=== PATIENT | female | born 1955 | race Caucasian/White ===

== ENCOUNTER 2021-11-09 05:01 | Observation (INO) | payer MEDICARE, SELFPAY ==
--- NOTE | ~2021-11-09 | CT_ITS ---
EXAMINATION: CT ABDOMEN AND PELVIS WITHOUT CONTRAST CLINICAL INFORMATION: Pancreatitis. COMPARISON: None TECHNIQUE: Multidetector volumetric imaging was performed from the superior aspect of the liver through the pubic symphysis. Sagittal and coronal reformatted images were obtained on the technologist's workstation. This CT examination was performed using dose optimization techniques as appropriate, variously including the following: *Automated exposure control *Adjustment of mA and/or kV according to patient size (this includes techniques or standardized protocols for targeted exams where dose is matched to indication/reason for exam; i.e. extremities or head) *Use of iterative reconstruction technique DLP: 408 mGy-cm FINDINGS: LUNG BASES: The visualized lung bases are unremarkable. LIVER, GALLBLADDER, AND BILIARY TREE: The liver is normal in size, shape, and attenuation. No focal hepatic lesion or biliary ductal dilatation is present. The gallbladder has been surgically removed. PANCREAS: The pancreas is normal size and homogeneous in density. There is a punctate calcification in the body of pancreas. No focal lesion or mass effect seen. The peripancreatic fat borders are preserved normal. SPLEEN: Unremarkable. ADRENAL GLANDS: The left adrenal gland has been surgically removed. The right adrenal gland is mildly hypertrophied but otherwise unremarkable. KIDNEYS AND URETERS: The kidneys are normal in size, shape, and attenuation. No hydronephrosis, hydroureter, or calculi seen. No perinephric stranding. There is 9 mm hypoattenuating exophytic lesion of upper pole left kidney measuring 13 Hounsfield units suggestive of a cyst. BLADDER: Unremarkable. GASTROINTESTINAL TRACT: There is scattered stool and gas seen throughout the colon without significant distention. Few scattered diverticuli seen in the colon. There is no evidence of diverticulitis. The small bowel loops are normal caliber. Appendix is normal caliber. ABDOMINAL WALL: No significant hernia is appreciated. LYMPH NODES: Normal. VASCULAR: Significant arthroscopic calcification of abdominal aorta with chronic atherosclerotic dissection of distal and posterior abdominal aorta is noted. PELVIC VISCERA: There is a vaginal pessary. The uterus is anteverted. There is no free fluid. No abnormal pelvic or inguinal lymph nodes seen. OSSEOUS STRUCTURES: No lytic or sclerotic process seen. CT/CT abdomen pelvis wo con IMPRESSION: Unremarkable pancreas. No acute process seen in the abdomen. There is a vaginal pessary in the pelvis. Chronic posterior descending abdominal aortic dissection. No aneurysmal dilatation. Fleischner guidelines were followed.
[2021-11-09 05:22] VITALS: BP 141/64; PULSE 62; RESP 16; TEMP 36.6; O2SAT 99; BMI 21.9
[2021-11-09 05:31] LABS: COVID-19 Test Negative (Negative); IDNOW Serial# 9DD0AD1C
[2021-11-09 06:21] LABS: MANUAL DIFF FLAG NO
[2021-11-09 06:38] LABS: Alanine Aminotransferase 17 U/L (0-31); Albumin Level 4.2 g/dL (3.5-5.0); Alkaline Phosphatase 43 U/L (39-117); Anion Gap 12 (12-20); Aspartate Amino Transferase 17 U/L (5-31); Bilirubin Total 0.3 mg/dL (0.0-1.0); Blood Urea Nitrogen 49 mg/dL (9-16); Calcium 9.8 mg/dL (8.4-10.2); Carbon Dioxide 21 mmol/L (22-29); Chloride 114 mmol/L (96-108); Estimated Glomerular Filt Rate 21; Glucose Random 115 mg/dL (60-115); Lipase 118 U/L (8-78); Potassium 5.1 mmol/L (3.3-5.1); Sodium 142 mmol/L (135-145); Total Protein 6.7 g/dL (6.5-8.0)
[2021-11-09 06:41] LABS: Basophils Absolute Auto 0.1 X10*3/uL (0.0-0.2); Basophils Percent Auto 0.8 % (0-2); Eosinophils Absolute Auto 0.3 X10*3/uL (0.0-0.4); Eosinophils Percent Auto 3.3 % (0-4); Hematocrit 38.8 % (37.0-47.0); Hemoglobin 12.4 g/dl (12.0-16.0); Imm Gran Abs Auto 0.05 X10*3/uL (0.00-0.03); Imm Gran Pct Auto 0.5 % (0.0-0.4); Lymphocytes Absolute Auto 2.6 X10*3/uL (1.2-4.9); Lymphocytes Percent Auto 27.4 % (20-40); Mean Corpuscular Hemoglobin 29.2 pg (27.0-33.0); Mean Corpuscular Volume 91.3 fL (80.0-98.0); Mean Platelet Volume 11.1 fL (9.4-12.3); Monocytes Absolute Auto 0.8 X10*3/uL (0.1-1.2); Monocytes Percent Auto 8.6 % (2-11); Neutrophils Absolute Auto 5.5 x10*3/uL (2.0-8.3); Neutrophils Percent Auto 59.4 % (45-73); Platelet Count 293 X10*3/uL (160-400); Red Blood Count 4.25 X10*6/uL (4.20-5.50); Red Cell Distribution Width 13.4 % (11.0-16.0); White Blood Count 9.3 X10*3/uL (4.8-10.8)
[2021-11-09] MEDS: 0.9 % Sodium Chloride 500 ML 999 ML IV ×3 (07:48→11:33)
[2021-11-09] MEDS: Morphine Sulfate 4 MG/ML CARTRIDGE IVPUSH (07:48)
--- NOTE | 2021-11-09 07:50 | ED_ITS ---
HPI - General Adult General Chief complaint: General Medical Stated complaint: abd pain, chills Time Seen by Provider: 11/09/21 07:37 Source: patient Mode of arrival: ambulatory Limitations: no limitations History of Present Illness HPI narrative: 58-year-old female presents to emergency room complaining of upper abdominal pain for past week has been dull and in the right upper quadrant as well. She states she does not have a gallbladder anymore. She denies any falls or injuries she denies any associated with foods. States she does not drink alcohol and she denies having pancreatitis in the past. Patient is vaccinated for COVID with the [employer] vaccine she has not received a booster shot. Related Data Home Medications Medication Instructions Recorded Confirmed albuterol sulfate 90 mcg/actuation 2 puff INHALATION Q4H PRN 11/09/21 11/09/21 aerosol inhaler aspirin 81 mg chewable tablet 81 mg PO DAILY 11/09/21 11/09/21 carvedilol 25 mg tablet 1 tab PO BID 11/09/21 11/09/21 cetirizine 10 mg tablet 10 mg PO DAILY PRN 11/09/21 11/09/21 cholecalciferol (vitamin D3) 50 1 tab PO DAILY 11/09/21 11/09/21 mcg (2,000 unit) tablet clopidogrel 75 mg tablet 1 tab PO DAILY 11/09/21 11/09/21 cyanocobalamin (vitamin B-12) 1,000 mcg PO DAILY 11/09/21 11/09/21 1,000 mcg tablet ezetimibe 10 mg tablet 1 tab PO DAILY 11/09/21 11/09/21 fenofibrate nanocrystallized 145 1 tab PO DAILY 11/09/21 11/09/21 mg tablet hydrochlorothiazide 12.5 mg capsule 1 cap PO DAILY 11/09/21 11/09/21 levothyroxine 125 mcg tablet 125 mcg PO DAILY@0600 11/09/21 11/09/21 lisinopril 40 mg tablet 1 tab PO BID 11/09/21 11/09/21 nateglinide 60 mg tablet 60 mg PO BIDAC 11/09/21 11/09/21 nifedipine 60 mg tablet,extended 1 tab PO BID 11/09/21 11/09/21 release 24 hr rosuvastatin 40 mg tablet 1 tab PO DAILY 11/09/21 11/09/21 Allergies Allergy/AdvReac Type Severity Reaction Status Date / Time No Known Allergies Allergy Verified 11/09/21 07:37 Review of Systems Review of Systems: Review of systems: General: Patient denies any fever chills recent illness or falls Musculoskeletal: Denies back pain or body aches or other injuries HEENT: denies headache, runny nose, ear pain Respiratory: denies shortness of breath, cough Cardiovascular: no chest pain or palpitations : denies dysuria, frequency Abdomen: no nausea vomiting she does have dull epigastric abdominal pain Extremities: no swelling, no pain Skin: no diaphoresis Yes all other systems are reviewed and are negative PMFSH Social History Social History Advance Directives: No Advance Directives Information Provided: No Physical Exam Vital Signs: Vital Signs: Last Vital Signs Temp 97.4 F 11/09/21 11:37 Pulse 56 11/09/21 11:37 Resp 16 11/09/21 11:37 BP 135/62 11/09/21 11:37 Pulse Ox 97 11/09/21 11:37 BMI result Body Mass Index 21.9 General: Well-appearing well-nourished in no signs of distress HEENT: Normocephalic atraumatic Neck: No signs of JVD, no masses no tenderness or lymphadenopathy Cardiovascular: Regular rate and rhythm Respiratory: Clear to auscultation bilaterally Abdomen: Soft nontender no masses Extremities: Normal pedal pulses no signs of edema Skin: Dry warm no rashes Back: No tenderness full ROM Medical Decision Making MDM Narrative Medical decision making narrative: Concern for pancreatitis patient does not have gallbladder the patient for CT scan I will check labs including CBC BMP LFTs and lipase. Lipase is minimally elevated the patient for CT scan pain is controlled with morphine patient to get L fluid however for 2 L patient does have acute kidney injury with an elevated BUN creatinine 2.3. Patient states she chronic kidney disease but I do not have previous creatinine on the patient. Umfortunately CT would have to be done without contrast. [id number] I explained the need for admission to patient I paged the hospitalist about admission. 1200 Patient accepted to the hospitalist unit I will put Lab Data Result diagrams: 11/09/21 06:14 11/09/21 06:14 Labs: Lab Results 11/09/21 11/09/21 11/09/21 Range/Units 05:10 06:14 06:14 WBC 9.3 (4.8-10.8) X10*3/uL RBC 4.25 (4.20-5.50) X10*6/uL Hgb 12.4 (12.0-16.0) g/dl Hct 38.8 (37.0-47.0) % MCV 91.3 (80.0-98.0) fL MCH 29.2 (27.0-33.0) pg MCHC 32.0 (31.0-35.0) g/dl RDW 13.4 (11.0-16.0) % Plt Count 293 (160-400) X10*3/uL MPV 11.1 (9.4-12.3) fL Immature Gran % (Auto) 0.5 H (0.0-0.4) % Neut % (Auto) 59.4 (45-73) % Lymph % (Auto) 27.4 (20-40) % [place] % (Auto) 8.6 (2-11) % Eos % (Auto) 3.3 (0-4) % Baso % (Auto) 0.8 (0-2) % Lymph # (Auto) 2.6 (1.2-4.9) X10*3/uL [place] # (Auto) 0.8 (0.1-1.2) X10*3/uL Eos # (Auto) 0.3 (0.0-0.4) X10*3/uL Baso # (Auto) 0.1 (0.0-0.2) X10*3/uL Abs Immat Gran (auto) 0.05 H (0.00-0.03) X10*3/uL Absolute Neuts (auto) 5.5 (2.0-8.3) x10*3/uL Absolute Nucleated RBC 0.000 (0.0-0.012) X10*3/uL Nucleated RBC % (auto) 0.0 (0.0-0.2) /100WBC Sodium 142 (135-145) mmol/L Potassium 5.1 (3.3-5.1) mmol/L Chloride 114 H (96-108) mmol/L Carbon Dioxide 21 L (22-29) mmol/L Anion Gap 12 (12-20) BUN 49 H (9-16) mg/dL Creatinine 2.32 H (0.5-1.4) mg/dL Estim Creat Clear Calc 20.0 Estimated GFR 21 Random Glucose 115 (60-115) mg/dL Calcium 9.8 (8.4-10.2) mg/dL Total Bilirubin 0.3 (0.0-1.0) mg/dL AST 17 (5-31) U/L ALT 17 (0-31) U/L Alkaline Phosphatase 43 (39-117) U/L Total Protein 6.7 (6.5-8.0) g/dL Albumin 4.2 (3.5-5.0) g/dL Triglycerides 205 mg/dL Cholesterol 135 mg/dL LDL Cholesterol, Calc 60 mg/dl HDL Cholesterol 34 mg/dL Lipase 118 H (8-78) U/L Urine Color Urine Appearance Urine pH (5.0-8.0) Ur Specific [place] (1.005-1.025) Urine Protein (NEG-TRACE) MG/DL Urine Glucose (UA) (NEG) MG/DL Urine Ketones (NEG) MG/DL Urine Blood (NEG) Urine Nitrite (NEG) Ur Leukocyte Esterase (NEG) Urine RBC (0) /HPF Urine WBC (0-4) /HPF Ur Squamous Epith Cells /LPF Urine Bacteria /LPF Granular Casts /LPF Ethyl Alcohol mg/dL COVID-19 ([facility]ASKAR) Negative (Negative) COVID-19 Clin Com See Note 11/09/21 11/09/21 11/09/21 Range/Units 08:44 08:54 08:54 WBC (4.8-10.8) X10*3/uL RBC (4.20-5.50) X10*6/uL Hgb (12.0-16.0) g/dl Hct (37.0-47.0) % MCV (80.0-98.0) fL MCH (27.0-33.0) pg MCHC (31.0-35.0) g/dl RDW (11.0-16.0) % Plt Count (160-400) X10*3/uL MPV (9.4-12.3) fL Immature Gran % (Auto) (0.0-0.4) % Neut % (Auto) (45-73) % Lymph % (Auto) (20-40) % [place] % (Auto) (2-11) % Eos % (Auto) (0-4) % Baso % (Auto) (0-2) % Lymph # (Auto) (1.2-4.9) X10*3/uL [place] # (Auto) (0.1-1.2) X10*3/uL Eos # (Auto) (0.0-0.4) X10*3/uL Baso # (Auto) (0.0-0.2) X10*3/uL Abs Immat Gran (auto) (0.00-0.03) X10*3/uL Absolute Neuts (auto) (2.0-8.3) x10*3/uL Absolute Nucleated RBC (0.0-0.012) X10*3/uL Nucleated RBC % (auto) (0.0-0.2) /100WBC Sodium (135-145) mmol/L Potassium (3.3-5.1) mmol/L Chloride (96-108) mmol/L Carbon Dioxide (22-29) mmol/L Anion Gap (12-20) BUN (9-16) mg/dL Creatinine (0.5-1.4) mg/dL Estim Creat Clear Calc Estimated GFR Random Glucose (60-115) mg/dL Calcium (8.4-10.2) mg/dL Total Bilirubin (0.0-1.0) mg/dL AST (5-31) U/L ALT (0-31) U/L Alkaline Phosphatase (39-117) U/L Total Protein (6.5-8.0) g/dL Albumin (3.5-5.0) g/dL Triglycerides 201 mg/dL Cholesterol 126 mg/dL LDL Cholesterol, Calc 55 mg/dl HDL Cholesterol 31 mg/dL Lipase (8-78) U/L Urine Color YELLOW Urine Appearance CLEAR Urine pH 5.5 (5.0-8.0) Ur Specific [place] >= 1.030 H (1.005-1.025) Urine Protein 2+ H (NEG-TRACE) MG/DL Urine Glucose (UA) NEG (NEG) MG/DL Urine Ketones NEG (NEG) MG/DL Urine Blood NEG (NEG) Urine Nitrite NEG (NEG) Ur Leukocyte Esterase NEG (NEG) Urine RBC 0 (0) /HPF Urine WBC 0-2 (0-4) /HPF Ur Squamous Epith Cells 1+ /LPF Urine Bacteria NONE /LPF Granular Casts 0-2 /LPF Ethyl Alcohol < 10 mg/dL COVID-19 ([facility]AR) (Negative) COVID-19 Clin Com Discharge Plan Discharge Clinical Impression: Elevated lipase, Abdominal pain, LEIGH (acute kidney injury) Patient Disposition: Admitted As Inpatient Prescriptions: No Action carvedilol 25 mg tablet 1 tab PO BID RF: 0 clopidogrel 75 mg tablet 1 tab PO DAILY RF: 0 nateglinide 60 mg tablet 60 mg PO BIDAC RF: 0 nifedipine 60 mg tablet extended release 24hr 1 tab PO BID RF: 0 levothyroxine 125 mcg tablet 125 mcg PO DAILY@0600 RF: 0 hydrochlorothiazide 12.5 mg capsule 1 cap PO DAILY RF: 0 albuterol sulfate 90 mcg/actuation HFA aerosol inhaler 2 puff inhalation Q4H PRN (Reason: Wheezing) RF: 0 lisinopril 40 mg tablet 1 tab PO BID RF: 0 ezetimibe 10 mg tablet 1 tab PO DAILY RF: 0 rosuvastatin 40 mg tablet 1 tab PO DAILY RF: 0 fenofibrate nanocrystallized 145 mg tablet 1 tab PO DAILY RF: 0 cholecalciferol (vitamin D3) 50 mcg (2,000 unit) tablet 1 tab PO DAILY RF: 0 cetirizine 10 mg Tablet 10 mg PO DAILY PRN (Reason: Allergy Symptoms) RF: 0 cyanocobalamin (vitamin B-12) 1,000 mcg Tablet 1,000 mcg PO DAILY RF: 0 aspirin 81 mg Tablet,Chewable 81 mg PO DAILY RF: 0
[2021-11-09 08:13] VITALS: BP 133/58; PULSE 57; RESP 14; TEMP 36.2; O2SAT 97
[2021-11-09 08:31] LABS: Cholesterol 135 mg/dL; HDL Cholesterol 34 mg/dL; LDL Cholesterol Calculated 60 mg/dl; Triglycerides 205 mg/dL
[2021-11-09 09:00] LABS: Appearance Urine CLEAR; Color Urine YELLOW; Glucose Urine UA NEG (NEG); Leukocyte Esterase Urine NEG (NEG); Nitrite Urine NEG (NEG); PH 5.5 (5.0-8.0); Specific Gravity - Urine >= 1.030 (1.005-1.025); UACC Culture Trigger NO; Urine Blood NEG (NEG); Urine Ketones NEG (NEG); Urine Protein 2+ MG/DL (NEG-TRACE)
[2021-11-09 09:09] LABS: Granular Casts Urine 0-2 /LPF; RBC Urine 0 /HPF (0); Squamous Epithelial Cell Urine 1+ /LPF; WBC Urine 0-2 /HPF (0-4)
[2021-11-09 09:13] LABS: Ethanol < 10 mg/dL
[2021-11-09 09:19] LABS: Cholesterol 126 mg/dL; HDL Cholesterol 31 mg/dL; LDL Cholesterol Calculated 55 mg/dl; Triglycerides 201 mg/dL
[2021-11-09 09:34] LABS: Reflex LDLD? No
[2021-11-09 11:37] VITALS: BP 135/62; PULSE 56; RESP 16; TEMP 36.3; O2SAT 97
--- NOTE | 2021-11-09 11:41 | PHA.MEDREC ---
Pharmacy Consult ? Medication Reconciliation Pharmacy has completed the medication reconciliation. Patient reports she is on Tradjenta 5 mg QHS and Lovaza 2 tablet daily, however I cannot confirm with pharmacy. There is no fill history and I was left on hold with [facility] for 15 minutes. Quiana sumner are on formulary. Radha Mary, ShunD
--- NOTE | 2021-11-09 12:09 | ED.GENADULT ---
HPI - General Adult General Chief complaint: General Medical Stated complaint: abd pain, chills Time Seen by Provider: 11/09/21 07:37 Source: patient Mode of arrival: ambulatory Limitations: no limitations Related Data Home Medications Medication Instructions Recorded Confirmed albuterol sulfate 90 mcg/actuation 2 puff INHALATION Q4H PRN 11/09/21 11/09/21 aerosol inhaler aspirin 81 mg chewable tablet 81 mg PO DAILY 11/09/21 11/09/21 carvedilol 25 mg tablet 1 tab PO BID 11/09/21 11/09/21 cetirizine 10 mg tablet 10 mg PO DAILY PRN 11/09/21 11/09/21 cholecalciferol (vitamin D3) 50 1 tab PO DAILY 11/09/21 11/09/21 mcg (2,000 unit) tablet clopidogrel 75 mg tablet 1 tab PO DAILY 11/09/21 11/09/21 cyanocobalamin (vitamin B-12) 1,000 mcg PO DAILY 11/09/21 11/09/21 1,000 mcg tablet ezetimibe 10 mg tablet 1 tab PO DAILY 11/09/21 11/09/21 fenofibrate nanocrystallized 145 1 tab PO DAILY 11/09/21 11/09/21 mg tablet hydrochlorothiazide 12.5 mg capsule 1 cap PO DAILY 11/09/21 11/09/21 levothyroxine 125 mcg tablet 125 mcg PO DAILY@0600 11/09/21 11/09/21 lisinopril 40 mg tablet 1 tab PO BID 11/09/21 11/09/21 nateglinide 60 mg tablet 60 mg PO BIDAC 11/09/21 11/09/21 nifedipine 60 mg tablet,extended 1 tab PO BID 11/09/21 11/09/21 release 24 hr rosuvastatin 40 mg tablet 1 tab PO DAILY 11/09/21 11/09/21 Allergies Allergy/AdvReac Type Severity Reaction Status Date / Time No Known Allergies Allergy Verified 11/09/21 07:37 [facility] Social History Social History Advance Directives: No Advance Directives Information Provided: No Physical Exam Vital Signs: Vital Signs: Last Vital Signs Temp 97.4 F 11/09/21 11:37 Pulse 56 11/09/21 11:37 Resp 16 11/09/21 11:37 BP 135/62 01/06/22 11:37 Pulse Ox 97 11/09/21 11:37 BMI result Body Mass Index 21.9 Medical Decision Making Lab Data Result diagrams: 11/09/21 06:14 11/09/21 06:14 Labs: Lab Results 11/09/21 11/09/21 11/09/21 Range/Units 05:10 06:14 06:14 WBC 9.3 (4.8-10.8) X10*3/uL RBC 4.25 (4.20-5.50) X10*6/uL Hgb 12.4 (12.0-16.0) g/dl Hct 38.8 (37.0-47.0) % MCV 91.3 (80.0-98.0) fL MCH 29.2 (27.0-33.0) pg MCHC 32.0 (31.0-35.0) g/dl RDW 13.4 (11.0-16.0) % Plt Count 293 (160-400) X10*3/uL MPV 11.1 (9.4-12.3) fL Immature Gran % (Auto) 0.5 H (0.0-0.4) % Neut % (Auto) 59.4 (45-73) % Lymph % (Auto) 27.4 (20-40) % [place] % (Auto) 8.6 (2-11) % Eos % (Auto) 3.3 (0-4) % Baso % (Auto) 0.8 (0-2) % Lymph # (Auto) 2.6 (1.2-4.9) X10*3/uL [place] # (Auto) 0.8 (0.1-1.2) X10*3/uL Eos # (Auto) 0.3 (0.0-0.4) X10*3/uL Baso # (Auto) 0.1 (0.0-0.2) X10*3/uL Abs Immat Gran (auto) 0.05 H (0.00-0.03) X10*3/uL Absolute Neuts (auto) 5.5 (2.0-8.3) x10*3/uL Absolute Nucleated RBC 0.000 (0.0-0.012) X10*3/uL Nucleated RBC % (auto) 0.0 (0.0-0.2) /100WBC Sodium 142 (135-145) mmol/L Potassium 5.1 (3.3-5.1) mmol/L Chloride 114 H (96-108) mmol/L Carbon Dioxide 21 L (22-29) mmol/L Anion Gap 12 (12-20) BUN 49 H (9-16) mg/dL Creatinine 2.32 H (0.5-1.4) mg/dL Estim Creat Clear Calc 20.0 Estimated GFR 21 Random Glucose 115 (60-115) mg/dL Calcium 9.8 (8.4-10.2) mg/dL Total Bilirubin 0.3 (0.0-1.0) mg/dL AST 17 (5-31) U/L ALT 17 (0-31) U/L Alkaline Phosphatase 43 (39-117) U/L Total Protein 6.7 (6.5-8.0) g/dL Albumin 4.2 (3.5-5.0) g/dL Triglycerides 205 mg/dL Cholesterol 135 mg/dL LDL Cholesterol, Calc 60 mg/dl HDL Cholesterol 34 mg/dL Lipase 118 H (8-78) U/L Urine Color Urine Appearance Urine pH (5.0-8.0) Ur Specific [place] (1.005-1.025) Urine Protein (NEG-TRACE) MG/DL Urine Glucose (UA) (NEG) MG/DL Urine Ketones (NEG) MG/DL Urine Blood (NEG) Urine Nitrite (NEG) Ur Leukocyte Esterase (NEG) Urine RBC (0) /HPF Urine WBC (0-4) /HPF Ur Squamous Epith Cells /LPF Urine Bacteria /LPF Granular Casts /LPF Ethyl Alcohol mg/dL COVID-19 ([facility]ASKAR) Negative (Negative) COVID-19 Clin Com See Note 11/09/21 11/09/21 11/09/21 Range/Units 08:44 08:54 08:54 WBC (4.8-10.8) X10*3/uL RBC (4.20-5.50) X10*6/uL Hgb (12.0-16.0) g/dl Hct (37.0-47.0) % MCV (80.0-98.0) fL MCH (27.0-33.0) pg MCHC (31.0-35.0) g/dl RDW (11.0-16.0) % Plt Count (160-400) X10*3/uL MPV (9.4-12.3) fL Immature Gran % (Auto) (0.0-0.4) % Neut % (Auto) (45-73) % Lymph % (Auto) (20-40) % [place] % (Auto) (2-11) % Eos % (Auto) (0-4) % Baso % (Auto) (0-2) % Lymph # (Auto) (1.2-4.9) X10*3/uL [place] # (Auto) (0.1-1.2) X10*3/uL Eos # (Auto) (0.0-0.4) X10*3/uL Baso # (Auto) (0.0-0.2) X10*3/uL Abs Immat Gran (auto) (0.00-0.03) X10*3/uL Absolute Neuts (auto) (2.0-8.3) x10*3/uL Absolute Nucleated RBC (0.0-0.012) X10*3/uL Nucleated RBC % (auto) (0.0-0.2) /100WBC Sodium (135-145) mmol/L Potassium (3.3-5.1) mmol/L Chloride (96-108) mmol/L Carbon Dioxide (22-29) mmol/L Anion Gap (12-20) BUN (9-16) mg/dL Creatinine (0.5-1.4) mg/dL Estim Creat Clear Calc Estimated GFR Random Glucose (60-115) mg/dL Calcium (8.4-10.2) mg/dL Total Bilirubin (0.0-1.0) mg/dL AST (5-31) U/L ALT (0-31) U/L Alkaline Phosphatase (39-117) U/L Total Protein (6.5-8.0) g/dL Albumin (3.5-5.0) g/dL Triglycerides 201 mg/dL Cholesterol 126 mg/dL LDL Cholesterol, Calc 55 mg/dl HDL Cholesterol 31 mg/dL Lipase (8-78) U/L Urine Color YELLOW Urine Appearance CLEAR Urine pH 5.5 (5.0-8.0) Ur Specific [place] >= 1.030 H (1.005-1.025) Urine Protein 2+ H (NEG-TRACE) MG/DL Urine Glucose (UA) NEG (NEG) MG/DL Urine Ketones NEG (NEG) MG/DL Urine Blood NEG (NEG) Urine Nitrite NEG (NEG) Ur Leukocyte Esterase NEG (NEG) Urine RBC 0 (0) /HPF Urine WBC 0-2 (0-4) /HPF Ur Squamous Epith Cells 1+ /LPF Urine Bacteria NONE /LPF Granular Casts 0-2 /LPF Ethyl Alcohol < 10 mg/dL COVID-19 ([facility]ASKAR) (Negative) COVID-19 Clin Com Discharge Plan Discharge Clinical Impression: Elevated lipase, Abdominal pain, LEIGH (acute kidney injury) Patient Disposition: Admitted As Inpatient
[2021-11-09 13:38] LABS: Anion Gap 10 (12-20); Blood Urea Nitrogen 44 mg/dL (9-16); Calcium 9.1 mg/dL (8.4-10.2); Carbon Dioxide 22 mmol/L (22-29); Chloride 117 mmol/L (96-108); Creatinine Clr Calc Pharmacy 24.1; Estimated Glomerular Filt Rate 26; Glucose Random 80 mg/dL (60-115); Potassium 5.1 mmol/L (3.3-5.1); Sodium 144 mmol/L (135-145)
--- NOTE | 2021-11-09 13:48 | P.HPHOSP_ITS ---
History of Present Illness Date of Service: 11/09/21 Attending physician on admission: Mackenzie Terrazas Chief Complaint: Abdominal pain 66-year-old female patient with past medical history significant for hypertension hyperlipidemia hypothyroidism, status post cholecystectomy presented to [facility] with complaint epigastric abdominal pain that started 2-3 weeks ago and gradually became more diffuse without associated nausea vomiting, no diarrhea, but noted to have chills mostly in the afternoon she denied any worsening factors, pain not related to food, denies pain at night, since pain was not improving she came to the emergency room and was noted to have an elevated lipase of 118, and creatinine of 2.32 patient does have history of chronic kidney disease, no labs available for comparison, her triglyceride is 201 with a total cholesterol of 126, CT abdomen without contrast showed no evidence of pancreatitis, no liver abnormality, no biliary ductal dilatation, gallbladder is surgically removed, she denies any sick contacts she denies any abdominal trauma she denied heart burn acidity, denies new medications. Review of Systems Review of Systems: General no headache no dizziness no fever chills. CVS no chest pain, no palpitation. Respiratory no cough , no sob. Gastrointestinal no nausea no vomiting, no diarrhea no urinary urgency no frequency Musculoskeletal no pain Skin no rash Yes all other systems are reviewed and are negative PMFSH Pertinent family history: Mother due to complications of bypass had history of coronary artery disease at old age Father of lung cancer at age 71 Sister has hypertension, hyperlipidemia Social History (Updated 11/09/21 @ 13:56 by Mackenzie Terrazas MD) Alcohol intake: never Advance Directives: No Advance Directives Information Provided: No Meds Allergies Allergy/AdvReac Type Severity Reaction Status Date / Time No Known Allergies Allergy Verified 11/09/21 07:37 Active Medications: Current Medications Acetaminophen (Acetaminophen 325 Mg Tablet) 650 mg PO Q6H PRN PRN Reason: Pain, Mild (Pain Scale 1-3) Albuterol Sulfate (Albuterol Sulfate 90 Mcg 8 Gm Inhaler) 2 puff INHALE Q4H PRN PRN Reason: Wheezing Aspirin (Aspirin 81 Mg Tab.Chew) 81 mg PO DAILY REPLACED BY [facility] Carvedilol (Carvedilol 25 Mg Tablet) 25 mg PO BID REPLACED BY [facility]; Protocol Clopidogrel Bisulfate (Clopidogrel Bisulfate 75 Mg Tablet) 75 mg PO DAILY REPLACED BY [facility] Cyanocobalamin (Cyanocobalamin (Vitamin B-12) 1,000 Mcg Tablet) 1,000 mcg PO DAILY REPLACED BY [facility] Ezetimibe (Ezetimibe 10 Mg Tablet) 10 mg PO DAILY REPLACED BY [facility] Heparin Sodium (Porcine) (Heparin Sodium,Porcine 5,000 Unit/Ml Vial) 5,000 unit SUBCUT Q12H REPLACED BY [facility] Lactated Ringer's (Lr) 1,000 mls @ 80 mls/hr IVCONT .[id number] REPLACED BY [facility] Levothyroxine Sodium (Levothyroxine Sodium 125 Mcg Tablet) 125 mcg PO DAILY@0600 REPLACED BY [facility] Morphine Sulfate (Morphine Sulfate 4 Mg/Ml Cartridge) 3 mg IVPUSH Q4H PRN; Protocol PRN Reason: Pain, Severe (Pain Scale 7-10) Nifedipine (Nifedipine Er 60 Mg Tab.Er.24) 60 mg PO BID TATYANA; Protocol Non-Formulary Medication (Fenofibrate Nanocrystallized) 1 tab PO DAILY REPLACED BY [facility] Non-Formulary Medication (Nateglinide) 60 mg PO BIDAC REPLACED BY [facility] Non-Formulary Medication (Rosuvastatin) 1 tab PO DAILY REPLACED BY [facility] Ondansetron HCl (Ondansetron Hcl 4 Mg/2 Ml Vial) 4 mg IVPUSH Q8H PRN PRN Reason: Nausea and Vomiting Oxycodone HCl (Oxycodone Hcl Immed Release 5 Mg Tablet) 5 mg PO Q6H PRN PRN Reason: Pain, Severe (Pain Scale 7-10) Pharmacy Consult (Consult Rx Perform Med Rec) 1 each MISCELLANE ONCE PRN PRN Reason: Consult order Sodium Chloride (0.9 % Sodium Chloride Flush 3 Ml Syringe) 3 ml IVFLUSH QSHIFT REPLACED BY [facility] Home Medications Medication Instructions Recorded Confirmed Last Taken Type albuterol sulfate 90 mcg/actuation 2 puff INHALATION Q4H PRN 11/09/21 11/09/21 Unknown History aerosol inhaler aspirin 81 mg chewable tablet 81 mg PO DAILY 11/09/21 11/09/21 Unknown History carvedilol 25 mg tablet 1 tab PO BID 11/09/21 11/09/21 Unknown History cetirizine 10 mg tablet 10 mg PO DAILY PRN 11/09/21 11/09/21 Unknown History cholecalciferol (vitamin D3) 50 1 tab PO DAILY 11/09/21 11/09/21 Unknown History mcg (2,000 unit) tablet clopidogrel 75 mg tablet 1 tab PO DAILY 11/09/21 11/09/21 Unknown History cyanocobalamin (vitamin B-12) 1,000 mcg PO DAILY 11/09/21 11/09/21 Unknown History 1,000 mcg tablet ezetimibe 10 mg tablet 1 tab PO DAILY 11/09/21 11/09/21 Unknown History fenofibrate nanocrystallized 145 1 tab PO DAILY 11/09/21 11/09/21 Unknown History mg tablet hydrochlorothiazide 12.5 mg capsule 1 cap PO DAILY 11/09/21 11/09/21 Unknown History levothyroxine 125 mcg tablet 125 mcg PO DAILY@0600 11/09/21 11/09/21 Unknown History lisinopril 40 mg tablet 1 tab PO BID 11/09/21 11/09/21 Unknown History nateglinide 60 mg tablet 60 mg PO BIDAC 11/09/21 11/09/21 Unknown History nifedipine 60 mg tablet,extended 1 tab PO BID 11/09/21 11/09/21 Unknown History release 24 hr rosuvastatin 40 mg tablet 1 tab PO DAILY 11/09/21 11/09/21 Unknown History Physical Exam Vital Signs and Narrative: Vital Signs: Last Vital Signs Temp 97.4 F 11/09/21 11:37 Pulse 56 11/09/21 11:37 Resp 16 11/09/21 11:37 BP 135/62 11/09/21 11:37 Pulse Ox 97 11/09/21 11:37 BMI result Body Mass Index 21.9 General resting comfortably in no acute distress. HEENT pupils equal round reactive to light and accommodation extraocular muscles intact Neck supple no JVD. CVS regular rate rhythm, Respiratory lungs clear to auscultation, no respiratory distress, no wheeze, no rhonchi. Gastrointestinal abdomen soft, nontender, bowel sounds audible, no guarding , no rigidity. Extremities no edema. Neuro nonfocal Skin no rash Psych appropriate affect Results Labs CBC and Chem 7: 11/09/21 06:14 11/09/21 13:07 Labs: Laboratory Results - last 24 hr 11/09/21 11/09/21 11/09/21 05:10 06:14 06:14 MCV 91.3 MCH 29.2 MCHC 32.0 RDW 13.4 Plt Count 293 MPV 11.1 Immature Gran % (Auto) 0.5 H Neut % (Auto) 59.4 Lymph % (Auto) 27.4 [place] % (Auto) 8.6 Eos % (Auto) 3.3 Baso % (Auto) 0.8 Lymph # (Auto) 2.6 [place] # (Auto) 0.8 Eos # (Auto) 0.3 Baso # (Auto) 0.1 Abs Immat Gran (auto) 0.05 H Absolute Neuts (auto) 5.5 Absolute Nucleated RBC 0.000 Nucleated RBC % (auto) 0.0 Anion Gap 12 Estim Creat Clear Calc 20.0 Estimated GFR 21 Random Glucose 115 Calcium 9.8 Total Bilirubin 0.3 AST 17 ALT 17 Alkaline Phosphatase 43 Total Protein 6.7 Albumin 4.2 Triglycerides 205 Cholesterol 135 LDL Cholesterol, Calc 60 HDL Cholesterol 34 Lipase 118 H Urine Color Urine Appearance Urine pH Ur Specific [place] Urine Protein Urine Glucose (UA) Urine Ketones Urine Blood Urine Nitrite Ur Leukocyte Esterase Urine RBC Urine WBC Ur Squamous Epith Cells Urine Bacteria Granular Casts Ethyl Alcohol COVID-19 (BHASKAR) Negative COVID-19 Clin Com See Note 11/09/21 11/09/21 11/09/21 08:44 08:54 08:54 MCV MCH MCHC RDW Plt Count MPV Immature Gran % (Auto) Neut % (Auto) Lymph % (Auto) [place] % (Auto) Eos % (Auto) Baso % (Auto) Lymph # (Auto) [place] # (Auto) Eos # (Auto) Baso # (Auto) Abs Immat Gran (auto) Absolute Neuts (auto) Absolute Nucleated RBC Nucleated RBC % (auto) Anion Gap Estim Creat Clear Calc Estimated GFR Random Glucose Calcium Total Bilirubin AST ALT Alkaline Phosphatase Total Protein Albumin Triglycerides 201 Cholesterol 126 LDL Cholesterol, Calc 55 HDL Cholesterol 31 Lipase Urine Color YELLOW Urine Appearance CLEAR Urine pH 5.5 Ur Specific [place] >= 1.030 H Urine Protein 2+ H Urine Glucose (UA) NEG Urine Ketones NEG Urine Blood NEG Urine Nitrite NEG Ur Leukocyte Esterase NEG Urine RBC 0 Urine WBC 0-2 Ur Squamous Epith Cells 1+ Urine Bacteria NONE Granular Casts 0-2 Ethyl Alcohol < 10 COVID-19 ([facility]ASKAR) COVID-19 Clin Com 11/09/21 13:07 MCV MCH MCHC RDW Plt Count MPV Immature Gran % (Auto) Neut % (Auto) Lymph % (Auto) [place] % (Auto) Eos % (Auto) Baso % (Auto) Lymph # (Auto) [place] # (Auto) Eos # (Auto) Baso # (Auto) Abs Immat Gran (auto) Absolute Neuts (auto) Absolute Nucleated RBC Nucleated RBC % (auto) Anion Gap 10 L Estim Creat Clear Calc 24.1 Estimated GFR 26 Random Glucose 80 Calcium 9.1 D Total Bilirubin AST ALT Alkaline Phosphatase Total Protein Albumin Triglycerides Cholesterol LDL Cholesterol, Calc HDL Cholesterol Lipase Urine Color Urine Appearance Urine pH Ur Specific [place] Urine Protein Urine Glucose (UA) Urine Ketones Urine Blood Urine Nitrite Ur Leukocyte Esterase Urine RBC Urine WBC Ur Squamous Epith Cells Urine Bacteria Granular Casts Ethyl Alcohol COVID-19 ([facility]ASKAR) COVID-19 Clin Com Imaging Radiologist's Impressions: Impressions Abdomen/Pelvis CT 11/09/21 09:12 IMPRESSION: Unremarkable pancreas. No acute process seen in the abdomen. There is a vaginal pessary in the pelvis. Chronic posterior descending abdominal aortic dissection. No aneurysmal dilatation. Fleischner guidelines were followed. Assessment and Plan (1) Elevated lipase: Status: Acute (2) Abdominal pain: Status: Acute (3) Chronic kidney disease: Status: Acute (4) LEIGH (acute kidney injury): Status: Acute 66-year-old female patient presented to [facility] due to 2-3 weeks of diffuse dull abdominal discomfort without associated nausea vomiting diarrhea or fever, workup in the emergency room showed an elevated lipase of 118 and a creatinine of 2.32 with history of chronic kidney disease unknown baseline. Abdominal pain/elevated lipase Less likely related to pancreatitis, elevated lipase likely due to acute kidney disease versus peptic ulcer disease Patient is status post cholecystectomy no history of alcohol use, normal LFTs, normal triglycerides, no abdominal trauma, no new medication is on hydrochlorothiazide and lisinopril for a long time Patient abdominal pain improved with IV morphine and IV hydration Will place on PPI, continue analgesics and IV fluid Will repeat labs at a.m. Acute kidney injury As per patient she has chronic kidney disease but not aware of her baseline, repeat creatinine is trending down, will treat with IV fluids hold hydrochlorothiazide Patient on multiple antihypertensive medication will avoid hypotension, follow BMP at a.m. Hypertension BP stable, continue Coreg and Procardia, will hold hydrochlorothiazide, and lisinopril follow BP closely Hyperlipidemia On multiple medications including phenobarb 5 rate, Zetia and Crestor, total cholesterol 126 with an HDL of 31, will need med adjustment as per PCP History of chronic posterior descending abdominal aortic dissection no aneurysmal dilatation noted Continue beta-blockers and good blood pressure control DVT prophylaxis with subcu heparin Code status full Quality Stroke Does the patient have a stroke diagnosis?: No VTE Prior VTE?: No VTE Risk Level:: Medical - moderate - high VTE Device Contraindication: Treatment Not Indicated VTE Drug Contraindication: N/A - Med Ordered
[2021-11-09 14:19] LABS: Lipase 109 U/L (8-78)
[2021-11-09] MEDS: Lactated Ringers 1,000 ML 80 ML IVCONT (15:18)
[2021-11-09] MEDS: Heparin Sodium,Porcine 5,000 UNIT/ML VIAL 5000 UNIT SUBCUT (15:19)
--- NOTE | 2021-11-09 15:30 | MHC.CM.PN ---
PATIENT LIVES ALONE SHE USES NO DME OR VNA SERVICES SHE HAS BEEN VACCINATED AGAINST COVID-19 WITH THE PFIZER SERIES JanuaryFEBRUARY 03, 2021 BERRIOS EXPLAINED AND SIGNED. COPY SENT TO MEDICAL RECORDS FROM THE E.D. AND NOT IN PATIENT CHART. CASE MANAGEMENT FOLLOWING
[2021-11-09 16:16] VITALS: BP 172/73; PULSE 57; RESP 16; TEMP 36.8; O2SAT 98
[2021-11-09] MEDS: 0.9 % Sodium Chloride Flush 3 ML SYRINGE IVFLUSH ×2 (16:18→22:00)
[2021-11-09 19:39] VITALS: BP 149/62; PULSE 55; RESP 16; TEMP 37.1; O2SAT 96
[2021-11-09] MEDS: carvediloL 25 MG TABLET PO (22:00)
[2021-11-09] MEDS: NIFEdipine ER 60 MG TAB.ER.24 PO (22:00)
[2021-11-09 22:05] VITALS: BMI 21.9
[2021-11-09 23:25] VITALS: BP 146/66; PULSE 54; RESP 18; TEMP 36.4; O2SAT 94
[2021-11-10] MEDS: Heparin Sodium,Porcine 5,000 UNIT/ML VIAL 5000 UNIT SUBCUT (01:17)
[2021-11-10 03:12] VITALS: BP 146/65; PULSE 55; RESP 18; TEMP 36.6; O2SAT 93
[2021-11-10] MEDS: Lactated Ringers 1,000 ML 80 ML IVCONT (04:48)
[2021-11-10] MEDS: Levothyroxine Sodium 125 MCG TABLET PO (05:52)
[2021-11-10 06:27] LABS: Anion Gap 11 (12-20); Blood Urea Nitrogen 36 mg/dL (9-16); Calcium 9.2 mg/dL (8.4-10.2); Carbon Dioxide 22 mmol/L (22-29); Chloride 112 mmol/L (96-108); Creatinine Clr Calc Pharmacy 27.3; Estimated Glomerular Filt Rate 30; Glucose Random 63 mg/dL (60-115); Potassium 4.6 mmol/L (3.3-5.1); Sodium 140 mmol/L (135-145)
[2021-11-10 07:59] VITALS: BP 169/73; PULSE 62; RESP 16; TEMP 36.7; O2SAT 93
[2021-11-10] MEDS: Aspirin 81 MG TAB.CHEW PO (08:07)
[2021-11-10] MEDS: 0.9 % Sodium Chloride Flush 3 ML SYRINGE IVFLUSH (08:07)
[2021-11-10] MEDS: Ezetimibe 10 MG TABLET PO (08:07)
[2021-11-10] MEDS: Atorvastatin Calcium 80 MG TABLET PO (08:08)
[2021-11-10] MEDS: Cyanocobalamin (Vitamin B-12) 1,000 MCG TABLET 1000 MCG PO (08:08)
[2021-11-10] MEDS: Fenofibrate 160 MG TABLET PO (08:08)
[2021-11-10] MEDS: carvediloL 25 MG TABLET PO (08:08)
[2021-11-10] MEDS: NIFEdipine ER 60 MG TAB.ER.24 PO (08:09)
[2021-11-10] MEDS: Clopidogrel Bisulfate 75 MG TABLET PO (08:09)
[2021-11-10 09:40] VITALS: BP 144/69; PULSE 63
[2021-11-10] MEDS: lisinopriL 40 MG TABLET PO (09:48)
--- NOTE | 2021-11-10 10:58 | PM.DS ---
DS: Providers Provider Date of Service: 11/10/21 Date of admission: 11/09/21 13:40 Primary care physician: Gaby Wade NP DS: Diagnosis Discharge Diagnosis (1) Elevated lipase: Status: Acute (2) Abdominal pain: Status: Acute (3) Chronic kidney disease: Status: Acute (4) LEIGH (acute kidney injury): Status: Acute DS: Summary Hospital Course Hospital Course: 66-year-old female patient with past medical history significant for hypertension hyperlipidemia hypothyroidism, status post cholecystectomy presented to [facility] with complaint epigastric abdominal pain that started 2-3 weeks ago and gradually became more diffuse without associated nausea vomiting, no diarrhea, but noted to have chills mostly in the afternoon she denied any worsening factors, pain not related to food, denies pain at night, since pain was not improving she came to the emergency room and was noted to have an elevated lipase of 118, and creatinine of 2.32 patient does have history of chronic kidney disease, no labs available for comparison, her triglyceride is 201 with a total cholesterol of 126, CT abdomen without contrast showed no evidence of pancreatitis, no liver abnormality, no biliary ductal dilatation, gallbladder is surgically removed, she denies any sick contacts she denies any abdominal trauma she denied heart burn acidity, denies new medications. Hospital course 66-year-old female patient presented to [facility] due to 2-3 weeks of diffuse dull abdominal discomfort and chills, without associated nausea vomiting diarrhea or fever, workup in the emergency room showed an elevated lipase of 118, CT abdomen showed normal pancreas and no acute abnormality and a creatinine of 2.32 with history of chronic kidney disease of unknown baseline. Patient admitted to medical floor treated with analgesics IV fluids, Patient responded well to above treatment, abdominal pain has resolved, renal function improved with IV hydration, creatinine came down to 1.7, lipase trended down to 109 since patient has clinically improved therefore will discharge her home, case discussed with telegraph lineman Dr. Darnell Young , patient baseline creatinine is 2-2.5, he agreed to stop hydrochlorothiazide and to reduce dose of Zestril to 40 mg daily, will recommend patient to have close outpatient follow-up with Nephrology. In regard to hyperlipidemia patient is on multiple agents including Crestor, zetia and lofibra , lipid profile showed, cholesterol 126 with an HDL of 31, and triglyceride of 201 will DC CTI and recommend outpatient follow-up with PCP History of chronic posterior descending abdominal aortic dissection no aneurysmal dilatation noted Continue beta-blockers and good blood pressure control Time Spent with Patient Time attestation: Total time spent providing and/or coordinating discharge services: Discharge coordination time: Greater than 30 minutes Quality: Stroke Does the patient have a stroke diagnosis?: No Physical Exam Vital Signs: Vital Signs: Last Vital Signs Temp 98.0 F 11/10/21 07:59 Pulse 63 11/10/21 09:40 Resp 16 11/10/21 07:59 BP 144/69 H 11/10/21 09:40 Pulse Ox 93 11/10/21 07:59 BMI result Body Mass Index 21.9 General resting comfortably in no acute distress.? HEENT pupils equal round reactive to light and accommodation extraocular muscles intact Neck supple no JVD. CVS? regular rate rhythm, Respiratory lungs clear to auscultation, no respiratory distress, no wheeze, no rhonchi. Gastrointestinal abdomen soft, nontender, bowel sounds audible, no guarding , no rigidity. Extremities no edema. Neuro nonfocal Skin no rash Psych appropriate affect DS: Data Data Completed and Pending Labs on day of discharge: Laboratory Results - last 24 hr 11/09/21 11/10/21 13:07 05:22 Sodium 144 140 Potassium 5.1 4.6 Chloride 117 H 112 H Carbon Dioxide 22 22 Anion Gap 10 L 11 L BUN 44 H 36 H Creatinine 1.93 H 1.70 H Estim Creat Clear Calc 24.1 27.3 Estimated GFR 26 30 Random Glucose 80 63 Calcium 9.1 D 9.2 Lipase 109 H Discharge Plan Discharge Patient Disposition: Home, Self-Care Discharge Diagnosis: Acute on chronic kidney disease stage 3 Abdominal pain Elevated lipase Referrals: Gaby Wade NP [Primary Care Provider] - 1 Week Discharge Medications: Continued carvedilol 25 mg tablet 1 tab PO BID RF: 0 clopidogrel 75 mg tablet 1 tab PO DAILY RF: 0 nateglinide 60 mg tablet 60 mg PO BIDAC RF: 0 nifedipine 60 mg tablet extended release 24hr 1 tab PO BID RF: 0 levothyroxine 125 mcg tablet 125 mcg PO DAILY@0600 RF: 0 albuterol sulfate 90 mcg/actuation HFA aerosol inhaler 2 puff inhalation Q4H PRN (Reason: Wheezing) RF: 0 lisinopril 40 mg tablet 1 tab PO BID RF: 0 rosuvastatin 40 mg tablet 1 tab PO DAILY RF: 0 fenofibrate nanocrystallized 145 mg tablet 1 tab PO DAILY RF: 0 cholecalciferol (vitamin D3) 50 mcg (2,000 unit) tablet 1 tab PO DAILY RF: 0 cetirizine 10 mg Tablet 10 mg PO DAILY PRN (Reason: Allergy Symptoms) RF: 0 cyanocobalamin (vitamin B-12) 1,000 mcg Tablet 1,000 mcg PO DAILY RF: 0 aspirin 81 mg Tablet,Chewable 81 mg PO DAILY RF: 0 Changed lisinopril 40 mg tablet 1 tab PO DAILY Qty: 0 RF: 0 Discontinued hydrochlorothiazide 12.5 mg capsule 1 cap PO DAILY RF: 0 ezetimibe 10 mg tablet 1 tab PO DAILY RF: 0 Discharge Orders: Discharge Order (Routine); Ordered 11/10/21 Ordered By: Mackenzie Terrazas Diet: diabetic diet Activity on Discharge: As tolerated Stand Alone Forms: Patient Portal Discharge page Care Plan Goals: Abdominal pain resolved elevated lipase due to kidney disease no evidence of acute pancreatitis, Acute on chronic kidney disease stage 3 likely due to dehydration / hydrochlorothiazide stop hydrochlorothiazide and reduce dose of lisinopril to 40 mg by mouth daily stop zetia Health Concerns: Diabetes mellitus, hypertension, chronic kidney disease take all medications as advised Plan of Treatment: Outpatient follow-up with Dr. Vasquez in next 1-2 weeks, outpatient follow-up with PCP in 1 week Assessment: Per discharge summary
--- NOTE | 2021-11-10 11:59 | MHC.CM.PN ---
PATIENT IS DC HOME - SELF CARE HER CAR IS IN LOT. RN AWARE OF PLAN
== END 2021-11-10 12:40 | disposition home or self-care (01) ==
LOC: HO.ED 12:09 → HO.EDOVER 13:49 → HO.S3 19:16
PROVIDERS: Admitting Provider Hospitalist; Emergency Provider Student in an Organized Health Care Education/Training Program; PCP Nurse Practitioner Pediatrics; Visit Provider Hospitalist
DX: R74.8 Abnormal levels of other serum enzymes (principal); R10.13 Epigastric pain; E86.0 Dehydration; E89.6 Postprocedural adrenocortical (-medullary) hypofunction; E11.22 Type 2 diabetes mellitus with diabetic chronic kidney disease; I12.9 Hypertensive chronic kidney disease with stage 1 through stage 4 chronic kidney disease, or unspecified chronic kidney disease; N18.30 Chronic kidney disease, stage 3 unspecified; N17.9 Acute kidney failure, unspecified; I70.0 Atherosclerosis of aorta; I71.02 Dissection of abdominal aorta; E78.5 Hyperlipidemia, unspecified; E03.9 Hypothyroidism, unspecified; Z20.822 Contact with and (suspected) exposure to COVID-19; Z90.49 Acquired absence of other specified parts of digestive tract; Z96.0 Presence of urogenital implants; Z53.29 Procedure and treatment not carried out because of patient's decision for other reasons; Z79.82 Long term (current) use of aspirin; Z79.899 Other long term (current) drug therapy
CPT/HCPCS: 36415; 74176; 80048; 80053; 80061; 81001; 81003; 82077; 83690; 85025; 87635; 96361; 96372; 96374; 96375; 96376; 99218; 99285; J2270